=== PATIENT | female | born 1965 | race Caucasian/White ===

== ENCOUNTER 2022-06-07 13:28 | Emergency (ER) | payer OTHER ==
[2022-06-07] VITALS (11 sets, daily range): BP systolic 105–132; BP diastolic 61–76
[~2022-06-07] VITALS: Ht 162.6 cm; Wt 70.5 kg
[2022-06-07] MEDS ORDERED: TAM75CAP PO (15:53)
== END 2022-06-07 16:26 | disposition home or self-care (01) | DRG 153 ==
LOC: ED 13:28
DX: J11.1 Influenza due to unidentified influenza virus with other respiratory manifestations (principal)